=== PATIENT | female | born 1950 | race Two or more races ===

== ENCOUNTER 2019-01-17 06:40 | Emergency (ER) | payer MEDICARE ==
[~2019-01-17] VITALS: Ht 162.6 cm; Wt 61.2 kg
--- NOTE | 2019-01-17 07:05 | NUR ---
BIBSELF FROM HOME. TO ER BED 11. AAOX4. NO RESP DISTRESS, BREATHING EVEN AND UNLABORED. C/O L CHEST PAIN . PT STATES THAT THE PAIN STARTED @ 5PM. SHARP INTERMITENT PAIN NON RADIATING 07/20. WHICH IS NOT PRESENT BY TIME OF ASSESSMENT. DENIES NAUSEA/VOMMITING. PT AFEBRILE. MD AT BEDSIDE. ORDERS RECEIVED, NOTED AND CARRIED OUT.
[2019-01-17 07:31] LABS: BASOPHILS % (AUTO) 0.6 % (0.0-2.0); EOSINOPHILS % (AUTO) 5.1 % (0.0-6.0); HEMATOCRIT 42 % (33-45); HEMOGLOBIN 13.7 g/dL (11.5-14.8); LYMPHOCYTES # (AUTO) 1.5 /CMM (0.8-4.8); LYMPHOCYTES % (AUTO) 25.1 % (20.0-44.0); MEAN CORPUSCULAR HGB CONC 33 g/dl (31.0-36.0); MEAN CORPUSCULAR VOLUME 89 fL (82-100); MONOCYTES # (AUTO) 0.5 /CMM (0.1-1.30); MONOCYTES % (AUTO) 7.8 % (2.0-12.0); NEUTROPHILS # (AUTO) 3.6 /CMM (1.8-8.9); NEUTROPHILS % (AUTO) 61.4 % (43.0-81.0); PLATELET COUNT (AUTO) 240 /CMM (150-450); RED BLOOD CELL COUNT(AUTO) 4.68 MIL/uL (4.0-5.2); WHITE BLOOD COUNT (AUTO) 5.9 K/uL (4.3-11.0)
[2019-01-17 07:33] LABS: CALCIUM, SERUM 9.2 mg/dL (8.5-10.1); CARBON DIOXIDE 32 mmol/L (21-32); CHLORIDE 104 mmol/L (98-107); CREATININE 0.9 mg/dL (0.6-1.3); GLUCOSE 100 mg/dL (74-106); POTASSIUM 4.5 mmol/L (3.5-5.1); SODIUM SERUM 141 mmol/L (136-145); UREA NITROGEN, BLOOD 21 mg/dL (7-18)
--- NOTE | 2019-01-17 07:34 | NUR ---
PT REFUSED TO HAVE AN IV LINE.
--- NOTE | 2019-01-17 07:37 | NUR ---
PT ENDORSED TO [facility] FOR [facility]
[2019-01-17 07:48] LABS: B-TYPE NATRIURETIC PEPTIDE 70 PG/ML (0-125)
--- NOTE | 2019-01-17 08:28 | NUR ---
Patient discharged to home in stable condition. Written and verbal after care instructions given. Patient verbalizes understanding of instruction.
[2019-01-17 08:29] VITALS: BP 130/68
== END 2019-01-17 08:30 | disposition home or self-care (01) ==
LOC: ER 06:49
DX: R07.89 Other chest pain (principal); E78.00 Pure hypercholesterolemia, unspecified; Z88.5 Allergy status to narcotic agent
CPT/HCPCS: 36415; 71045-TC; 80048-TC; 83880; 84484-TC; 85025-TC